=== PATIENT | male | born 1985 | race Caucasian/White ===

== ENCOUNTER 2025-03-09 10:47 | Day surgery (SDC) | payer BC ==
--- NOTE | 2025-03-07 08:04 | NUR ---
CASE CANCELED PER DR BALL, ATTEMPTED TO CALL PT. NO ANSWER AT THIS TIME
--- NOTE | 2025-03-07 08:07 | NUR ---
PT AWARE OF CANCELED CASE
[~2025-03-09] VITALS: Ht 188 cm; Wt 100.0 kg
[~2025-03-09 10:47] MED LIST: CEFAZOLIN SODIUM 2 GM in SODIUM CHLORIDE 0.9% 100 ML IV SCH; CELEXA10 MG PO; CLONAZEPAM0.5 MG PO; HYDROmorphone HCL 1 MG/ML SYR IV PRN; HYOSCYAMINE SULFATE 0.375 MG TAB.ER.12H PO PRN; IBLOOD GLUCOSE TEST STRIP 1 EA TEST VI PRN; LACTATED RINGER'S 1,000 ML IV SCH; LIDOCAINE HCL 1% 5 ML SDV INJ ONE; MORPHINE SULFATE 15 MG TABCR PO PRN; OXYCODONE/APAP 5/325 TAB PO PRN; ZYRTEC10 M3 PO; mitoMYcin 40 MG/20 ML VIAL BLADIN SCH
[2025-03-09] MEDS ORDERED: SEVOFLURANE 250 ML BTL INH ONE (12:53)
[2025-03-09 13:22] VITALS: BP 121/78
[2025-03-09] MEDS ORDERED: MORPHINE SULFATE 15 MG TABCR PO PRN (13:30)
[2025-03-09] MEDS ORDERED: OXYCODONE/APAP 5/325 TAB PO PRN (13:30)
[2025-03-09] MEDS ORDERED: HYDROmorphone HCL 1 MG/ML SYR IV PRN ×2 (13:30→15:45)
[2025-03-09] MEDS ORDERED: HYOSCYAMINE SULFATE 0.375 MG TAB.ER.12H PO PRN (13:30)
[2025-03-09] MEDS ORDERED: ROCURONIUM BROMIDE 50 MG/5 ML SYR ONE ×4 (14:45→16:02)
[2025-03-09] MEDS ORDERED: LIDOCAINE HCL 2% 5 ML SDV ONE (14:45)
[2025-03-09] MEDS ORDERED: fentaNYL citrate 100 MCG/2 ML VIAL ONE (14:45)
[2025-03-09] MEDS ORDERED: DEXAMETHASONE SOD PHOS 4 MG/ML VIAL ONE (15:26)
[2025-03-09] MEDS ORDERED: MAGNESIUM SULFATE 1 GM/2 ML VIAL ONE (15:26)
[2025-03-09] MEDS ORDERED: SUGAMMADEX SODIUM 200 MG/2 ML ML ONE (15:33)
[2025-03-09] MEDS ORDERED: IBLOOD GLUCOSE TEST STRIP 1 EA TEST VI PRN (15:45)
[2025-03-09] MEDS ORDERED: NALOXONE HCL 0.4 MG SYR IV PRN (15:45)
[2025-03-09] MEDS ORDERED: fentaNYL citrate 50 MCG/ML SDV IV PRN (15:45)
[2025-03-09] MEDS ORDERED: ACETAMINOPHEN 1,000 MG/100 ML VIAL ONE (15:46)
[2025-03-09] MEDS ORDERED: FLUORESCEIN SODIUM 500 MG/5 ML ML ONE (15:54)
[2025-03-09] MEDS ORDERED: TRANEXAMIC ACID 1,000 MG/10 ML AMP ONE (16:17)
--- NOTE | 2025-03-09 17:50 | NUR ---
PATIENT BROUGHT TO THE FLOOR AT 1730 BY DAY SURGERY NURSE. DAY SURGERY NURSE REMOVED HIS NASH. PATIENT HAS ALL CHEMO PRECATIONS IN ROOM. PER ORDERS AND DAY SURGERY NURSE PATIENT NEEDS TO STAY AN HOUR AND BE ABLE TO VOID. FAMILY AT BEDSIDE. VITALS DONE, WNL.
[2025-03-09 17:52] VITALS: BP 124/80
--- NOTE | 2025-03-09 18:14 | NUR ---
PATIENT WOULD LIKE SOME PAIN MEDICATION. HE WANTED ORAL BUT ITS BEEN TO SOON. SEE EMAR. PATIENT IS EATING A CRACKER AND DRINKING ALMA QIANA. YET TO VOID. FAMILY AT BEDSIDE.
--- NOTE | 2025-03-09 18:22 | NUR ---
03/09/25 182 Shellie Butler 1643 PT ARRIVED IN PACU NON RESPONSIVE TO NOXIOUS STIMULI WITH OPA IN PLACE. NASH CLAMPED AND TAPED TO ABD. 1644 PT REACTIVE. OPA REMOVED. 1645 PT REPOSITIONED TO R SIDE PER DR ORDERS. 1700 REPOSITIONED PT TO L SIDE. VISITING WITH STAFF AND CRACKING JOKES. 1717 PT POSITIONED SELF TO STOMACH. NO C/O'S. TALKING WITH STAFF. 1730 TO MS ROOM 122. REPORT GIVEN TO RN. 1735 PT'S NASH REMOVED AND PLACED IN CHEMO BIN PER PROTOCAL. PT RELAXED AND TALKING TO FAMILY WHILE DRINKING WATER.
--- NOTE | 2025-03-09 18:54 | NUR ---
PATIENT UP AT BEDSIDE. TRIED TO USE THE URINAL. UNABLE TO VOID AT THIS TIME.
[2025-03-09 18:55] VITALS: BP 135/85
--- NOTE | 2025-03-09 19:38 | NUR ---
RECEIVED REPORT FROM FRANCO BLUNT. PT RESTING ON GURNEY, VISITING W/ FAMILY. PT REPORTS SOME DISCOMFORT, JOSE RAUL TO MEDICATE. PT ENC TO CALL FOR ASSIST WHEN READY TO VOID.
--- NOTE | 2025-03-09 20:00 | NUR ---
PT RESTING IN BED. REPORTS DECREASED PAIN AFTER PO PAIN MED. REPORTS PAIN TO PUBIC AREA. LSC. HRR. BTA. DENIES NAUSEA. SIPPING WATER AND ALMA QIANA TO ENCOURAGE UO. SL TO RFA WNL. CALL LIGHT WITHIN REACH. FAMILY REMAINS AT BEDSIDE.
--- NOTE | 2025-03-09 20:08 | NUR ---
PT ONLY ABLE TO VOID 50CC D[facility] [place] UO. PT ENC TO INCREASE PO INTAKE AND TRY AGAIN. PT DOES NOT FEEL LIKE HE IS EMPTYING HIS BLADDER.
[2025-03-09 20:38] VITALS: BP 132/88
--- NOTE | 2025-03-09 20:38 | NUR ---
Patient still not able to have a full void. Bladder scanner done, 161mls. Patient was given water. Family at bedside. Patient states he is scared a little to urinate.
--- NOTE | 2025-03-09 20:46 | NUR ---
Pt laying bed drinking water. pt has no needs at this time. call light within reach.
[2025-03-09 21:11] VITALS: BP 132/88
--- NOTE | 2025-03-09 21:23 | NUR ---
PT SENT FAMILY HOME FOR NOW, REPORTS FEELING ANXIETY TO VOID WITH THEM IN ROOM. PT FEELS MAY NEED TO VOID SOON.
--- NOTE | 2025-03-09 22:16 | NUR ---
PT REPORTS SOME "LIGHTHEADEDNESS" WHEN VOIDING. WHEN CLARIFYING WITH PATIENT, HE REPORTS ITS MORE OF A PAIN RESPONSE THAN DIZZINESS. DR. BALL CONTACTED TO OK D/C AT THIS TIME. OFFERED PYRIDIUM IF WANTED BEFORE D/C (SABRINAICK PATIENT DECLINED) BUT IS OK WITH PLANNED D/C TONIGHT.
[2025-03-09 22:19] VITALS: BP 130/83
--- NOTE | 2025-03-09 22:37 | NUR ---
PATIENT OFF THE FLOOR. PATIENT TAKEN OUT VIA WHEELCHAIR AND HIS MOTHER PICKED HIM UP. PATIENT IV WAS REMOVED, CATH INTACT. BELONGINGS BACK TO PATIENT. PATIENT ABLE TO GET SELF DRESSED WITH NO COMPLICATIONS. PATIENT VOIDED 300 BEFORE LEAVING WICH WAS EMPTIED IN THE YELLOW BIN.
== END 2025-03-09 22:37 | disposition home or self-care (01) ==
LOC: DS 10:47 → MS 17:33 → DS 22:37
PROVIDERS: ATTEND Urology
PROC: 0T768DZ Dilation of Right Ureter with Intraluminal Device, Via Natural or Artificial Opening Endoscopic (ICD-10-PCS; 2025-03-09)
PROC: 0TBB8ZZ Excision of Bladder, Via Natural or Artificial Opening Endoscopic (ICD-10-PCS; principal; 2025-03-09 13:55)
PROC: 3E0K805 Introduction of Other Antineoplastic into Genitourinary Tract, Via Natural or Artificial Opening Endoscopic (ICD-10-PCS; 2025-03-09 13:55)
DX: D41.4 Neoplasm of uncertain behavior of bladder (principal); F32.A Depression, unspecified; F41.9 Anxiety disorder, unspecified; Z79.899 Other long term (current) drug therapy; Z85.51 Personal history of malignant neoplasm of bladder
CPT/HCPCS: 00910; 51798; 76000; 96374; C1713; C1758; C1769; C2617; J0131; J0688; J1100; J1171; J2003; J2405; J2704; J3010; J3475; J3490; J7121; J9280